=== PATIENT | female | born 1970 | race African-American/Black ===

== ENCOUNTER 2016-09-28 16:26 | Emergency (ER) | payer BC ==
[2016-09-28 14:20] LABS: BASOPHILS ABSOLUTE 0.11 10/3/uL (0.0-0.16); EOSINOPHILS 5.2 %; EOSINOPHILS ABSOLUTE 0.55 10/3/uL (0.0-0.53); ER CBC TAT 0 Hrs 05 Mins; HEMATOCRIT 36.4 % (36.0-48.0); HEMOGLOBIN 12.1 g/dL (12.0-16.0); IMMATURE GRANULOCYTES 0.8 %; IMMATURE GRANULOCYTES ABSOLUTE 0.08 10/3/uL (0.0-0.11); LYMPHOCYTES 30.4 %; LYMPHOCYTES ABSOLUTE 3.19 10/3/uL (0.67-4.30); MEAN CORPUSCULAR VOLUME 90.5 fL (80-100); MEAN PLATELET VOLUME 10.4 fL (9.2-13.0); MONOCYTES 6.2 %; MONOCYTES ABSOLUTE 0.65 10/3/uL (0.21-1.20); NEUTROPHILS 56.4 %; NEUTROPHILS ABSOLUTE 5.91 10/3/uL (2.02-8.40); PLATELET COUNT 322 10/3/uL (150-400); RED CELL COUNT 4.02 10/6/uL (4.0-5.6); WHITE BLOOD CELLS 10.5 10/3/uL (4.5-10.5)
[2016-09-28 14:23] LABS: ER DIFF TAT NO; MANUAL DIFF NO %; MEAN CORPUS HGB CONC 33.2 g/dL (32.0-36.0); MEAN CORPUSCULAR HEMOGLOB 30.1 pg (26.0-34.0)
[2016-09-28 14:37] LABS: BUN (BLOOD UREA NITROGEN) 9 MG/DL (6-23); CALCIUM, SERUM 9.1 MG/DL (8.5-10.4); CHEST PAIN PROFILE TAT 0 Hrs 22 Mins; CHLORIDE, SERUM 101 MMOL/L (96-112); CO2 (CARBON DIOXIDE) 26 MMOL/L (24-34); CREATININE 0.97 MG/DL (0.55-1.02); GFR AFRICAN AMERICAN 82 ML/MIN (>=60); GFR NON AFRICAN AMERICAN 71 ML/MIN (>=60); SODIUM, SERUM 138 MMOL/L (135-148); TROPONIN I <0.02 NG/ML (<0.05)
[2016-09-28 14:38] LABS: GLUCOSE, SERUM 151 MG/DL (60-99); POTASSIUM, SERUM 4.2 MMOL/L (3.5-5.3)
[2016-09-28 17:07] LABS: PARTIAL THROMBO TIME 26.6 SEC (22.5-37.2); PROTIME (NOT ORD) 12.7 SEC (12.0-14.5)
[2016-09-28] MEDS ORDERED: ENDOCET1 TAB PO (18:21)
[2016-09-28] MEDS ORDERED: PR12.5 PO (18:21)
[2016-09-28] MEDS ORDERED: NEUR300 PO (18:22)
[2016-09-28] MEDS ORDERED: MOBIC7.5 PO (18:22)
[2016-09-28] MEDS ORDERED: FLEX PO (18:22)
[2016-09-28] MEDS ORDERED: AMB10 PO (18:23)
[2016-09-28] MEDS ORDERED: KLOR-CON 1010 MEQ PO (18:23)
[2016-09-28] MEDS ORDERED: MICROZIDE PO (18:23)
[2016-09-28] MEDS ORDERED: PROVHFA INH (18:23)
[2016-09-28] MEDS ORDERED: CALTRAT600 PO (18:24)
[2016-09-28] MEDS ORDERED: FERROUS SULF325 M1 PO (18:24)
[2016-09-28] MEDS ORDERED: VITAMIN D1000 UNI1 PO (18:25)
[2016-09-28] MEDS ORDERED: TOF50 PO ×2 (18:26)
[2016-09-28] MEDS ORDERED: VIST25 PO (18:27)
[2016-09-28] MEDS ORDERED: COREG6 PO (18:27)
[2016-09-28] MEDS ORDERED: PROZAC PO (18:27)
== END 2016-09-28 21:39 | disposition home or self-care (01) ==
LOC: ER 16:26
PROVIDERS: Emergency Medicine
DX: F41.9 Anxiety disorder, unspecified (principal); I11.0 Hypertensive heart disease with heart failure; I50.9 Heart failure, unspecified; F32.9 Major depressive disorder, single episode, unspecified; D64.9 Anemia, unspecified; Z87.891 Personal history of nicotine dependence; Z90.710 Acquired absence of both cervix and uterus; Z88.8 Allergy status to other drugs, medicaments and biological substances; Z79.899 Other long term (current) drug therapy
CPT/HCPCS: 71020; 71275; 80048; 83735; 84484; 85025; 85610; 85730; 93005; 99285; Q9967